=== PATIENT | female | born 1960 | race Caucasian/White ===

== ENCOUNTER 2017-12-25 12:50 | Day surgery (SDC) | payer BC ==
[2017-12-25] MEDS ORDERED: LIDOCAINE 2% INJ 100 MG/5 ML SDV (FOR ANES.) As Ordered (13:22)
[2017-12-25] MEDS ORDERED: PROPOFOL 200 MG/20 ML VIAL As Ordered (13:22)
[2017-12-25] MEDS ORDERED: fentaNYL 100 MCG/2 ML INJECTION (J3010) As Ordered (14:12)
== END 2017-12-25 15:18 | disposition home or self-care (01) ==
LOC: M OPP 12:50
DX: K29.70 Gastritis, unspecified, without bleeding (principal); K44.9 Diaphragmatic hernia without obstruction or gangrene; F41.9 Anxiety disorder, unspecified; K58.9 Irritable bowel syndrome, unspecified; G47.30 Sleep apnea, unspecified; Z79.899 Other long term (current) drug therapy; Z90.711 Acquired absence of uterus with remaining cervical stump; Z93.3 Colostomy status; Z80.52 Family history of malignant neoplasm of bladder; Z80.0 Family history of malignant neoplasm of digestive organs
CPT/HCPCS: 43239

== ENCOUNTER → 2019-09-16 | Outpatient (CLI) | payer BC ==
[~2019-09-16] MED LIST: CENT1TAB19 PO; FISH500C PO; FLUO40CA PO; VITA200015 PO; ZYRT10CA PO
== END ==
LOC: M SLEEP 19:12
PROVIDERS: ATTEND Physician Assistant
DX: G47.33 Obstructive sleep apnea (adult) (pediatric) (principal)

== ENCOUNTER → 2019-09-26 | Outpatient (CLI) | payer BC ==
[2019-09-26 17:08] LABS: HEMOGLOBIN A1c 6.8 %
== END ==
LOC: M LAB 16:01
PROVIDERS: ATTEND Family Medicine
DX: E11.9 Type 2 diabetes mellitus without complications (principal)

== ENCOUNTER → 2021-03-20 | Outpatient (CLI) | payer BC ==
--- NOTE | 2021-03-20 20:31 | REP ---
INDICATION: PAIN. COMPARISON: None. TECHNIQUE: Frontal view of the pelvis with neutral and frog-lateral views of the right and left hip. FINDINGS: No acute fracture or dislocation. Mild symmetric age-related degenerative changes to the hips includes subtle increased sclerosis and minimal joint space narrowing. No osteophytosis or periarticular calcifications/loose bodies identified. IMPRESSION: Mild symmetric age-related degenerative changes noted bilaterally. <Electronically signed by Galen Rosado > 03/20/212026
== END ==
LOC: M SOG 13:36
PROVIDERS: ATTEND Orthopaedic Surgery Adult Reconstructive Orthopaedic Surgery
DX: M25.552 Pain in left hip (principal); M25.551 Pain in right hip